=== PATIENT | female | born 1965 | race Caucasian/White ===

== ENCOUNTER 2016-11-30 02:01 | Emergency (ER) | payer SELFPAY ==
[2016-11-30 02:01] VITALS: BMI 31.8
[2016-11-30 02:12] VITALS: BP 127/88; PULSE 90; RESP 20; TEMP 98.3; O2SAT 95
[2016-11-30] MEDS ORDERED: Aluminum Hydroxide/Magnesium Hydroxide Susp (30 mL) PO STA (02:59)
[2016-11-30] MEDS ORDERED: Aluminum Hydroxide/Magnesium Hydroxide Susp (30 mL) ONE (03:11)
--- NOTE | 2016-11-30 03:13 | C.PDOC ---
History Of Present Illness Patient is a 51 year old female who presents to the ER with a complaint of a sore throat, cough and nasal congestion for the past 2 days. Patient states she laid down today and got an acidic feel in her mid chest. Patient reports her tonsils feel swollen and notes shes has painful swallowing. Patient also reports she has been under a lot of stress lately. Denies fever, chills or ear pain. Time Seen by Provider: 11/30/16 02:17 Chief Complaint (Nursing): ENT Problem History Per: Patient History/Exam Limitations: None Onset/Duration Of Symptoms: Days (2) Current Symptoms Are (Timing): Still Present Quality (Mouth/Throat): Tenderness, Swelling Symptoms Have Been: Continuous Anticoagulant/Antiplatlet Use?: Unknown Recent Aspirin Use: Unknown Past Medical History Reviewed: Historical Data, Nursing Documentation, Vital Signs Vital Signs: Last Vital Signs Temp 98.3 F 11/30/16 02:08 Pulse 90 11/30/16 02:08 Resp 20 11/30/16 02:08 BP 127/88 11/30/16 02:08 Pulse Ox 95 11/30/16 05:02 - Medical History PMH: Diverticulitis Surgical History: No Surg Hx - [facility] Procedures PARENTERAL INFUSION OF CONCENTRATED NUT. SUBSTANCE (10/20/12) VACCINATION NEC (10/20/12) Family History: States: Unknown Family Hx - Social History Hx Tobacco Use: No Hx Alcohol Use: Yes (Social) Hx Substance Use: No - Immunization History Hx Tetanus Toxoid Vaccination: No Hx Influenza Vaccination: Yes Hx Pneumococcal Vaccination: No Review Of Systems Constitutional: Negative for: Fever, Chills ENT: Positive for: Nose Congestion, Throat Pain, Throat Swelling. Negative for : Ear Pain Respiratory: Positive for: Cough Physical Exam - Physical Exam Appears: Non-toxic, No Acute Distress Skin: Normal Color, Warm, Dry Head: Atraumatic, Normacephalic Ear(s): Bilateral: Normal Nose: Normal, No Discharge Oral Mucosa: Moist Throat: Normal, No Erythema, No Exudate, No Drooling, No Other (Tonsillar swelling) Neck: Normal, Supple Lymphatic: Normal Exam, No Adenopathy Chest: Symmetrical, No Tenderness Cardiovascular: Rhythm Regular, No Murmur Respiratory: Normal Breath Sounds, No Rales, No Rhonchi, No Wheezing Gastrointestinal/Abdominal: Soft, No Tenderness Neurological/Psych: Oriented x3, Normal Speech, Normal Cognition ED Course And Treatment O2 Sat by Pulse Oximetry: 95 (Room air) Pulse Ox Interpretation: Normal Progress Note: Maalox, benadryl and lidocaine PO wash administered. Patient is resting comfortably, and is in no acute distress, speaking in full sentences. Patient was instructed to follow up with PMD in 1-2 days for further evaluation. Disposition Counseled Patient/Family Regarding: Diagnosis, Need For Followup, Rx Given - Disposition Referrals: PMD, PRIVATE DOCTOR [Other] Disposition: HOME/ ROUTINE Disposition Time: 03:09 Condition: STABLE Additional Instructions: PLEASE FOLLOW UP WITH PMD GARGLE WITH WARM SALT WATER TAKE MEDS PRESCRIBED RETURN TO ER IF WORSE Prescriptions: Aluminum Hydroxide/Magnesium H [Maalox 30 ml] 30 ml PO TID #100 ml Benzonatate [Tessalon Perles] 100 mg PO TID #20 sgl Cetirizine HCl [Zyrtec] 10 mg PO DAILY #20 capsule Instructions: Upper Respiratory Infection (ED), Gastroesophageal Reflux Disease (ED) - Clinical Impression Clinical Impression: GERD (gastroesophageal reflux disease), Upper respiratory infection - Scribe Statement The provider has reviewed the documentation as recorded by the Scribe Jose Pacheco All medical record entries made by the Scribe were at my direction and personally dictated by me. I have reviewed the chart and agree that the record accurately reflects my personal performance of the history, physical exam, medical decision making, and the department course for this patient. I have also personally directed, reviewed, and agree with the discharge instructions and disposition.
== END 2016-11-30 03:24 | disposition home or self-care (01) ==
LOC: C.ER 02:01
DX: J06.9 Acute upper respiratory infection, unspecified (principal); K21.9 Gastro-esophageal reflux disease without esophagitis